=== PATIENT | male | born 2000 | race Hispanic/Latino ===

== ENCOUNTER 2021-04-22 14:51 | Emergency (ER) | payer MEDICAID ==
[2021-04-22] MEDS ORDERED: Ketorolac Tromethamine 30 MG/ML VIAL ONE (16:03)
== END 2021-04-22 17:20 | disposition home or self-care (01) ==
LOC: ERS 14:51
DX: S76.302A Unspecified injury of muscle, fascia and tendon of the posterior muscle group at thigh level, left thigh, initial encounter (principal); J42 Unspecified chronic bronchitis; W19.XXXA Unspecified fall, initial encounter; Y93.61 Activity, american tackle football
CPT/HCPCS: 96372; 99283; J1885